=== PATIENT | female | born 1990 | race Caucasian/White ===

== ENCOUNTER 2018-11-06 20:20 | Emergency (ER) | payer MEDICAID ==
[~2018-11-06] VITALS: Ht 160 cm; Wt 86.5 kg
[~2018-11-06 20:20] MED LIST: ACET1TAB40 PO; AMOX500C2 PO; HYDR-3498 PO; IBUP-1542 PO; PNV1TABL12 PO
[2018-11-06 20:23] VITALS: BP 128/74; PULSE 77; RESP 19; Ht 160 cm; Wt 86.5 kg
== END 2018-11-06 23:03 | disposition home or self-care (01) ==
LOC: FTE 20:20
DX: O26.891 Other specified pregnancy related conditions, first trimester (principal); R42 Dizziness and giddiness; Z3A.01 Less than 8 weeks gestation of pregnancy
CPT/HCPCS: 81003; 81025; 82962; 93005; Z7502

== ENCOUNTER 2018-11-22 17:06 | Emergency (ER) | payer MEDICAID ==
[~2018-11-22] VITALS: Ht 160 cm; Wt 87.8 kg
[2018-11-22 17:10] VITALS: BP 123/69; PULSE 79; RESP 16; Ht 160 cm; Wt 87.8 kg
== END 2018-11-22 19:33 | disposition home or self-care (01) ==
LOC: E/R 17:06
DX: O20.9 Hemorrhage in early pregnancy, unspecified (principal); Z3A.01 Less than 8 weeks gestation of pregnancy
CPT/HCPCS: 36415; 76801; 76817; 81001; 84702; 85025; 86900; 86901; Z7502

== ENCOUNTER 2018-11-24 14:30 | Emergency (ER) | payer MEDICAID ==
[~2018-11-24] VITALS: Ht 160 cm; Wt 86.0 kg
[2018-11-24 15:07] VITALS: Ht 160 cm; Wt 86.0 kg
[2018-11-24 18:35] VITALS: BP 128/73; PULSE 67; RESP 18
== END 2018-11-24 18:35 | disposition home or self-care (01) ==
LOC: FTE 14:30
DX: O02.1 Missed abortion (principal)
CPT/HCPCS: 76801; 76817; 84702; Z7502

== ENCOUNTER → 2018-11-28 | Outpatient (CLI) | payer MEDICAID | END | disposition home or self-care (01) | LOC: U/S 09:26 | PROVIDERS: ATTEND Registered Nurse Obstetric, Inpatient | DX: O36.80X0 Pregnancy with inconclusive fetal viability, not applicable or unspecified (principal); Z3A.01 Less than 8 weeks gestation of pregnancy | CPT/HCPCS: 76801; 76817 ==